=== PATIENT | male | born 1990 | race Caucasian/White ===

== ENCOUNTER 2021-06-09 01:58 | Emergency (ER) | payer MEDICAID ==
[~2021-06-09] VITALS: Ht 177.8 cm; Wt 99.8 kg
[2021-06-09 01:58] VITALS: BP 134/68
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
--- NOTE | 2021-06-09 02:25 | NUR ---
DISCHARGED IN POLICE CUSTODY, OK TO BOOK
[2021-06-09 02:51] VITALS: BP 134/68
== END 2021-06-09 02:25 ==
LOC: MED 01:58
DX: Z04.1 Encounter for examination and observation following transport accident (principal); Z02.89 Encounter for other administrative examinations
CPT/HCPCS: 99283